=== PATIENT | male | born 1945 | race Caucasian/White ===

== ENCOUNTER 2016-10-17 11:34 | Day surgery (SDC) | payer MEDICARE, OTHER ==
[~2016-10-17 11:34] MED LIST: ASPI81TA82 PO; ATOR10 PO; BISA5TAB PO; CO Q100C9 PO; FISH1000 PO; GLUC250C5 PO; META48.53 PO; PACE200T4 PO; PERC5TAB12 PO; PLAV75TA PO; PROS5TAB2 PO; PROT40TA PO; RIVA10 PO; TAB-TAB PO; TAMS0.4C67 PO; Z.0.COMMODE-3:1; Z.0.WALKERFRONT
[2016-10-17] MEDS ORDERED: ATOR10TA15 PO (12:03)
[2016-10-17] MEDS ORDERED: VITA10007 PO (12:03)
[2016-10-17] MEDS ORDERED: APIX5TAB PO (12:03)
[2016-10-17] MEDS ORDERED: GLUC1CAP16 (12:03)
[2016-10-17] MEDS ORDERED: MULTCAP13 (12:03)
[2016-10-17] MEDS ORDERED: OXYB5TAB10 PO (12:03)
[2016-10-17] MEDS ORDERED: TAMS0.4C4 PO (12:03)
[2016-10-17] MEDS ORDERED: METO25TA3 PO (12:03)
[2016-10-17] MEDS ORDERED: NEXI40CA PO (12:03)
[2016-10-17] MEDS ORDERED: PROS5TAB PO (12:03)
[2016-10-17] MEDS ORDERED: PROPOFOL 200 MG/20 ML AMP IV ONE (13:45)
--- NOTE | 2016-10-17 16:22 | EKG ---
Date Performed: 10/17/2016 Time Performed: 12:14:42 PTAGE: 71 years EKG: Atrial fibrillation Abnormal ECG NO SIGNIFICANT CHANGE FROM PRIOR ELECTROCARDIOGRAM. PREVIOUS TRACING : 09/01/2014 12.05 DOCTOR: Luis Hou Interpretating Date/Time 10/17/2016 16:21:23
--- NOTE | 2016-10-17 16:50 | CF ---
cc: KENDRA LEONARDO M.D., JOANNE D. M.D. Transesophageal echocardiogram INDICATION Moderate to severe mitral regurgitation to assess the mitral valve. Full informed consent was obtained for the procedure, risks of , bleeding, perforation, aspiration, foreseen and unforeseen complications reviewed, the patient fully appears to understand the risks. PROCEDURE The patient was draped and prepped in the usual manner. Anesthesia was used as per the Anesthesia Department before the procedure was preformed. FINDINGS The left atrial appendage was free of thrombus and there was evidence of atrial fibrillation. The left atrium was enlarged. There was evidence of the of mitral valve prolapse with a very eccentric jet that wrapped into the area of the interatrial septum. The aortic valve was trileaflet and had some mild regurgitation. The tricuspid valve had moderate tricuspid station. The atrial septum was intact. The interventricular septum intact. The left ventricle systolic function was normal. The right ventricular systolic function was normal. PLAN Will plan to continue to observe the patient. He does not have shortness of breath on exertion. At this time he has moderate to severe mitral vegetation which may be a factor in the patient's atrial fibrillation since he does have left atrial enlargement. We will review with Dr. Bhardwaj. Kendra Leonardo MD, FRCP,[facility]/rafael /2:10 PM /4:36 PM RACHEL
== END 2016-10-17 14:40 | disposition home or self-care (01) ==
LOC: HDOC 11:34 → HDIC 11:35 → HDOC 14:40
PROVIDERS: ATTEND Internal Medicine Cardiovascular Disease
DX: I34.0 Nonrheumatic mitral (valve) insufficiency (principal); I48.91 Unspecified atrial fibrillation; I25.10 Atherosclerotic heart disease of native coronary artery without angina pectoris; Z98.61 Coronary angioplasty status
CPT/HCPCS: 93005; 93312; 93320; 93325

== ENCOUNTER → 2016-12-12 | Outpatient (CLI) | payer MEDICARE, OTHER ==
[~2016-12-12] MED LIST changes: +APIX5TAB PO; -ASPI81TA82 PO; -ATOR10 PO; +ATOR10TA15 PO; -BISA5TAB PO; -CO Q100C9 PO; -FISH1000 PO; +GLUC1CAP16; -GLUC250C5 PO; -META48.53 PO; +METO25TA3 PO; +MULTCAP13; +NEXI40CA PO; +OXYB5TAB10 PO; -PACE200T4 PO; -PERC5TAB12 PO; -PLAV75TA PO; +PROS5TAB PO; -PROS5TAB2 PO; -PROT40TA PO; -RIVA10 PO; -TAB-TAB PO; +TAMS0.4C4 PO; -TAMS0.4C67 PO; +VITA10007 PO; -Z.0.COMMODE-3:1; -Z.0.WALKERFRONT
[2016-12-12 10:31] LABS: INTERNATIONAL NORMALIZED RATIO 5.6 RATIO; PROTHROMBIN TIME - PATIENT 66.7 SEC (9.8-11.6)
== END ==
LOC: PLAB 09:54
PROVIDERS: ATTEND Thoracic Surgery (Cardiothoracic Vascular Surgery)
DX: Z79.01 Long term (current) use of anticoagulants (principal)
CPT/HCPCS: 36415; 85610

== ENCOUNTER → 2016-12-14 | Outpatient (CLI) | payer MEDICARE, OTHER ==
[2016-12-14 12:30] LABS: INTERNATIONAL NORMALIZED RATIO 4.5 RATIO; PROTHROMBIN TIME - PATIENT 53.1 SEC (9.8-11.6)
== END ==
LOC: PLAB 10:41
PROVIDERS: ATTEND Thoracic Surgery (Cardiothoracic Vascular Surgery)
DX: Z79.01 Long term (current) use of anticoagulants (principal)
CPT/HCPCS: 36415; 85610

== ENCOUNTER → 2017-01-18 | Outpatient (CLI) | payer MEDICARE, OTHER ==
[2017-01-18 09:18] LABS: AUTOMATED NEUTROPHIL # 5.4 TH/MM3 (1.8-7.7); BASOPHIL % 0.5 % (0.0-2.0); EOSINOPHIL # 0.2 TH/MM3 (0-0.4); EOSINOPHIL % 2.6 % (0.0-4.0); HEMATOCRIT 37.5 % (39.0-51.0); HEMO FLAGS DIFF FINAL; LYMPH % 16.4 % (9.0-44.0); LYMPHOCYTE # 1.2 TH/MM3 (1.0-4.8); MEAN CELL VOLUME 87.4 FL (80.0-100.0); MEAN CORPUSCULAR HEMOGLOBIN 28.1 PG (27.0-34.0); MEAN CORPUSCULAR HGB CONC 32.2 % (32.0-36.0); MONO % 8.4 % (0.0-8.0); NEUT % 72.1 % (16.0-70.0); PLATELET COUNT 339 TH/MM3 (150-450); RED BLOOD COUNT 4.29 MIL/MM3 (4.50-5.90); RED CELL DISTRIBUTION WIDTH 15.8 % (11.6-17.2); WHITE BLOOD COUNT 7.6 TH/MM3 (4.0-11.0)
[2017-01-18 09:52] LABS: ALKALINE PHOSPHATASE 44 U/L (45-117); ALT (GPT) 22 U/L (12-78); ANION GAP 8 MEQ/L (5-15); AST (GOT) 10 U/L (15-37); BICARBONATE 26.2 MEQ/L (21.0-32.0); BLOOD UREA NITROGEN 16 MG/DL (7-18); CHLORIDE 107 MEQ/L (98-107); GLOMERULAR FILTRATION RATE 67 ML/MIN (>89); GLUCOSE,FASTING 97 MG/DL (74-99); HDL CHOLESTEROL 38.1 MG/DL (40.0-60.0); LDL CHOLESTEROL 65 MG/DL (0-99); POTASSIUM 4.2 MEQ/L (3.5-5.1); SODIUM (NA) 141 MEQ/L (136-145); TOTAL BILIRUBIN ADULT 0.3 MG/DL (0.2-1.0)
== END ==
LOC: PLAB 07:50
PROVIDERS: ATTEND Family Medicine
DX: E78.5 Hyperlipidemia, unspecified (principal); N40.0 Benign prostatic hyperplasia without lower urinary tract symptoms; I48.0 Paroxysmal atrial fibrillation
CPT/HCPCS: 36415; 80053; 80061; 84153; 84443; 85025

== ENCOUNTER → 2017-05-03 | Outpatient (CLI) | payer MEDICARE, OTHER ==
[2017-05-03 13:42] LABS: ALT (GPT) 21 U/L (12-78); ANION GAP 6 MEQ/L (5-15); AST (GOT) 14 U/L (15-37); BLOOD UREA NITROGEN 18 MG/DL (7-18); CHLORIDE 106 MEQ/L (98-107); GLOMERULAR FILTRATION RATE 53 ML/MIN (>89); GLUCOSE,FASTING 93 MG/DL (74-99); POTASSIUM 4.7 MEQ/L (3.5-5.1); SODIUM (NA) 140 MEQ/L (136-145)
[2017-05-03 13:51] LABS: ALKALINE PHOSPHATASE 42 U/L (45-117); FREE T4 1.19 NG/DL (0.76-1.46); HDL CHOLESTEROL 43.5 MG/DL (40.0-60.0); LDL CHOLESTEROL 101 MG/DL (0-99); TOTAL BILIRUBIN ADULT 0.5 MG/DL (0.2-1.0)
[2017-05-03 16:30] LABS: HEMOGLOBIN A1a 1.3 %; HEMOGLOBIN A1b 1.8 %; HEMOGLOBIN Ao 83.8 %; HEMOGLOBIN LA1C 2.1 %; HEMOGLOBIN P3 4.2 %
== END ==
LOC: PLAB 08:37
PROVIDERS: ATTEND Family Medicine
DX: E78.5 Hyperlipidemia, unspecified (principal); E03.9 Hypothyroidism, unspecified
CPT/HCPCS: 36415; 80053; 80061; 83036; 84439; 84443

== ENCOUNTER 2017-07-10 11:16 | Day surgery (SDC) | payer MEDICARE, OTHER ==
[2017-07-10] MEDS ORDERED: CHLORHEXIDINE GLUCONATE 2 % 1 PACK (2 CLOTHS) TOPICAL PRN (12:00)
[2017-07-10] MEDS ORDERED: METOPROLOL TARTRATE 25 MG TAB PO PRN (12:00)
[2017-07-10] MEDS ORDERED: LACTATED RINGER'S 1000 ML IV PRN (12:00)
[2017-07-10] MEDS ORDERED: POVIDONE IODINE 5% (ANTISEPSIS KIT) 4 APPLICATIONS EACH NARE PRN (12:00)
[2017-07-10] MEDS ORDERED: INSULIN HUMAN REGULAR 1,000 UNITS/10 ML VIAL SQ PRN (12:00)
[2017-07-10] MEDS ORDERED: SODIUM CHLORID 0.9% 500 ML IV PRN (12:00)
[2017-07-10] MEDS ORDERED: ASPI81TA11 PO (12:22)
[2017-07-10] MEDS ORDERED: LEVO50TA4 PO (12:22)
[2017-07-10] MEDS ORDERED: WARF4TAB51 PO (12:22)
[2017-07-10] MEDS ORDERED: DOCU100C PO (12:22)
[2017-07-10] MEDS ORDERED: FLEE5TAB PO (12:22)
[2017-07-10] MEDS ORDERED: META48.53 PO (12:23)
[2017-07-10] MEDS ORDERED: MULT400T PO (12:23)
[2017-07-10] MEDS ORDERED: PROPOFOL 200 MG/20 ML AMP ONE (13:04)
--- NOTE | 2017-07-10 14:27 | EKG ---
Date Performed: 07/10/2017 Time Performed: 11:41:22 PTAGE: 71 years EKG: Atrial fibrillation. Possible left anterior fascicular block Inferior ST-T changes are nons pecific Abnormal ECG PREVIOUS TRACING : 10/17/2016 12.14 Compared to prior tracing no significant change DOCTOR: Rene Izaguirre Interpretating Date/Time 07/10/2017 14:25:44
--- NOTE | 2017-07-11 06:06 | CF ---
cc: KENDRA LEONARDO M.D., JOANNE D. M.D. PROCEDURE PERFORMED Transesophageal echo. INDICATIONS Atrial fibrillation. CONSENT A full, informed consent was obtained prior to the procedure. The risks of , bleeding, perforation, aspiration, stroke, foreseen and unforeseen complications were reviewed. The patient fully appeared to understand the risks. PROCEDURAL STATEMENT The patient was draped and prepped in the usual manner. The patient was anesthetized by the Anesthesia Department. A full IMAN was performed. Following this a cardioversion was performed. FINDINGS The mitral valve is prosthetic. This is a tissue valve. There is evidence of a mobile structure in the region of the valve which could be consistent with a vegetation or possibly a mobile chordae with papillary muscle or other structure. The left atrial appendage is free of thrombus. The mitral valve otherwise is functioning normally. There is no evidence significant for mitral regurgitation. The interatrial septum, interventricular septum intact. The left atrium was free of thrombus. The right ventricular atrium was normal. The tricuspid valve moved normally. The aorta was visualized to 40 cm. CONCLUSIONS 1. Proceed with cardioversion. 2. No left appendage thrombus. 3. Patient well anticoagulated prior to cardioversion. The structure seen which was pedunculated was reviewed by Dr. Izaguirre. This structure is of uncertain origin. We will have Cardiac Surgery see. Kednra Leonardo MD, CP,[facility]/LUCIA /1:43 PM /5:52 AM
--- NOTE | 2017-07-11 06:10 | MR ---
cc: KENDRA LEONARDO M.D. DATE 07/10/2017 PROCEDURE Cardioversion INDICATION Atrial fibrillation. CONSENT A full, informed consent was obtained prior to the procedure. The risks of stroke, , bleeding, foreseen and unforeseen complications were reviewed. The patient fully appeared to understand the risks. PROCEDURAL STATEMENT The patient was fully anticoagulated. Following IMAN a cardioversion was performed. The patient was given 200 joules synchronized shock which converted him to sinus rhythm. CONCLUSION Successful conversion to sinus rhythm. Kendra [facility]ardo MD, CP,[facility]/LUCIA /1:45 PM /6:03 AM MTDD
--- NOTE | 2017-07-11 07:58 | EKG ---
Date Performed: 07/10/2017 Time Performed: 14:05:46 PTAGE: 71 years EKG: Sinus rhythm with 1st degree A-V block. Left axis deviation Poor R wave progression - probable normal variant Abn ormal ECG Since PREVIOUS TRACING , no significant change noted PREVIOUS TRACIN07/10/2017 11.41 DOCTOR: Marysol Díaz Interpretating Date/Time 07/11/2017 07:57:31
== END 2017-07-10 15:05 | disposition home or self-care (01) ==
LOC: HDOC 11:16 → HDIC 11:17 → HDOC 15:05
PROVIDERS: ATTEND Internal Medicine Cardiovascular Disease
DX: I48.91 Unspecified atrial fibrillation (principal)
CPT/HCPCS: 87040; 92960; 93005

== ENCOUNTER → 2017-11-01 | Outpatient (CLI) | payer MEDICARE, OTHER ==
[2017-11-01 09:25] LABS: AUTOMATED NEUTROPHIL # 4.4 TH/MM3 (1.8-7.7); BASOPHIL # 0.1 TH/MM3 (0-0.2); BASOPHIL % 1.1 % (0.0-2.0); EOSINOPHIL # 0.2 TH/MM3 (0-0.4); HEMATOCRIT 40.1 % (39.0-51.0); HEMO FLAGS DIFF FINAL; HEMOGLOBIN 13.8 GM/DL (13.0-17.0); LYMPH % 19.9 % (9.0-44.0); LYMPHOCYTE # 1.3 TH/MM3 (1.0-4.8); MEAN CELL VOLUME 91.4 FL (80.0-100.0); MEAN CORPUSCULAR HEMOGLOBIN 31.4 PG (27.0-34.0); MEAN CORPUSCULAR HGB CONC 34.4 % (32.0-36.0); MEAN PLATELET VOLUME 7.6 FL (7.0-11.0); MONO % 7.6 % (0.0-8.0); MONOCYTE # 0.5 TH/MM3 (0-0.9); NEUT % 68.4 % (16.0-70.0); PLATELET COUNT 330 TH/MM3 (150-450); RED BLOOD COUNT 4.38 MIL/MM3 (4.50-5.90); WHITE BLOOD COUNT 6.4 TH/MM3 (4.0-11.0)
[2017-11-01 09:54] LABS: ALBUMIN 3.6 GM/DL (3.4-5.0); ANION GAP 8 MEQ/L (5-15); AST (GOT) 16 U/L (15-37); BICARBONATE 26.5 MEQ/L (21.0-32.0); BLOOD UREA NITROGEN 22 MG/DL (7-18); CALCIUM 8.9 MG/DL (8.5-10.1); CHLORIDE 104 MEQ/L (98-107); CREATININE 1.02 MG/DL (0.60-1.30); GLOMERULAR FILTRATION RATE 71 ML/MIN (>89); GLUCOSE,FASTING 90 MG/DL (74-99); POTASSIUM 4.3 MEQ/L (3.5-5.1); SODIUM (NA) 138 MEQ/L (136-145)
[2017-11-01 09:55] LABS: CHOLESTEROL 176 MG/DL (120-200)
[2017-11-01 10:04] LABS: PROSTATE SPECIFIC ANTIGEN 1.94 NG/ML (0.00-4.00)
[2017-11-01 10:07] LABS: ALKALINE PHOSPHATASE 40 U/L (45-117); ALT (GPT) 26 U/L (12-78); CHOLESTEROL/ HDL RATIO 4.35 RATIO; HDL CHOLESTEROL 40.4 MG/DL (40.0-60.0); LDL CHOLESTEROL 110 MG/DL (0-99); THYROXINE (T4) 7.4 MCG/DL (4.5-12.1); TOTAL BILIRUBIN ADULT 0.5 MG/DL (0.2-1.0); TOTAL PROTEIN 7.2 GM/DL (6.4-8.2); TRIGLYCERIDES 129 MG/DL (42-150)
[2017-11-01 14:32] LABS: HEMOGLOBIN A1C 5.6 % (4.3-6.0); HEMOGLOBIN A1a 1.2 %; HEMOGLOBIN A1b 1.6 %; HEMOGLOBIN Ao 85.2 %; HEMOGLOBIN P3 3.8 %
== END ==
LOC: PLAB 07:37
DX: E78.5 Hyperlipidemia, unspecified (principal); R73.01 Impaired fasting glucose; N40.0 Benign prostatic hyperplasia without lower urinary tract symptoms; E03.9 Hypothyroidism, unspecified
CPT/HCPCS: 36415; 80053; 80061; 83036; 84153; 84436; 84443; 85025

== ENCOUNTER → 2018-03-17 | Outpatient (CLI) | payer MEDICARE, OTHER ==
[~2018-03-17] MED LIST changes: -APIX5TAB PO; +ASPI81TA23 PO; +DOCU100C15 PO; +FLEE5TAB PO; -GLUC1CAP16; +LEVO50TA4 PO; +META48.53 PO; +MULT400T PO; -MULTCAP13; -OXYB5TAB10 PO; +OXYB5TAB8 PO; -VITA10007 PO; +WARF4TAB51 PO
[2018-03-17 11:32] LABS: FREE T4 0.81 NG/DL (0.76-1.46)
== END ==
LOC: PLAB 07:52
PROVIDERS: ATTEND Internal Medicine Cardiovascular Disease
DX: E03.9 Hypothyroidism, unspecified (principal)
CPT/HCPCS: 36415; 84439; 84443